=== PATIENT | female | born 2000 ===

== ENCOUNTER 2024-10-26 12:46 | Outpatient (CLI) | payer OTHER, SELFPAY ==
--- OUTSIDE RECORDS SUMMARY | 2024-10-26 12:50 | XMS_ITS | Referral Summary ---
Author Organization [address] Address [address] [place] [id number] Care Team Providers Care New Car Driver Name Role Phone Sharon Moralez Primary Care Provider [phone] Allergies No known active allergies Medications cholecalciferol (VITAMIN D-3) 62590 unit tablet Take 1 tablet (50,000 Units total) by mouth every 7 days Active ascorbic acid (vitamin C) 1,000 mg tablet Take 1 tablet (1,000 mg total) by mouth daily Active vitamin b complex tablet Take 1 tablet by mouth daily Active magnesium gluconate 200 mg tabletIndicatio ns:hypomagnesem ia 1 tablet (200 mg total) Active selenium sulfide 2.5 % lotionIndicatio ns:Seborrheic dermatitis Apply to affected areas and leave on for 10 minutes then wash off. Do this daily for 1 week, then twice a week for maintenance. 120 mL 11 08/16/2023 Active Active Problems Problem Noted Date Diagnosed Date BMI 28.0-28.9,adult 01/21/2020 Routine adult health maintenance 01/12/2020 Overview (01/12/2020): Health Maintenance: -PCV13 vaccine: N/A -PPSV23 vaccine: N/A -Tdap vaccine: -Influenza vaccine: -Shingles vaccine: N/A -Colonoscopy: N/A -Last WWE: N/A -Last Mammogram: N/A -Last DEXA: N/A -Last eye exam: -Last MHA: N/A Immunizations Immunization Administration Dates Next Due BCG 01/22/2002 DTaP 5 Pertussis 08/02/2006, 4,06/29/2002,05/01,02/27/2002 HPV9 08/16/2023 Hep A, Unspecified 10/25/2003,03/19/2003 Hep B, Adolescent or Pediatric 02/15/2005 Hep B, Unspecified 03/09/2002,02/03/2002, 002 HiB 03/19/2003, 3,05/01/2002,02/27 IPV 08/02/2006, 3,05/01/2002,02/27 Influenza, Quadrivalent, Spl it, Preservative Free, Intramuscular 01/23/2022 Influenza, Unspecified 02/06/2023(Deferr ed: Patient Refused),01/06/2021(Deferred: Patient Refused) [place] Encephalitis, Unspecified 03/21/2010,,07/07/2003 MMR 08/02/2006,01/20/2003 Meningococcal ACWY, Unspecified 02/21/2017 Meningococcal Conjugate (Menveo) 01/21/2020 PPD TEST 06/17/2012,05/02/2010 Tdap 02/21/2017 Varicella 09/29/2015,01/20/2003 Social History Tobacco Use Types Packs/Day Years Used Date Smoking Tobacco: Never Tobacco Cessation:Counseling Given: Not Answered Alcohol Use Standard Drinks/Week Comments Never 0 (1 standard drink = 0.6 oz pur e alcohol) AUDIT-C Answer Date Recorded Q1: How often do you have a drink containing alc ohol? 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 Sexual Orientation Choose not to disclose 2021 1:25 PM MANGLE CATCHER Occupation Industry Job Start Date Job End Date Student Not on file Not on file Not on file Last Filed Vital Signs Vital Sign Reading Time Taken Comments Blood Pressure 102/78 08/16/2023 9:54 AM CDT Pulse 97 08/16/2023 9:54 AM CDT Temperature 36.4 C (97.6 F) 08/16/2023 9:54 AM CDT Respiratory Rate 18 08/16/2023 9:54 AM CDT Oxygen Saturation 98% 08/16/2023 9:54 AM CDT Inhaled Oxygen Concentration - - Weight 70.8 kg (156 lb) 08/16/2023 9:54 AM CDT Height 162.6 cm (5' 4) 08/16/2023 9:54 AM CDT Body Mass Index 26.78 08/16/2023 9:54 AM CDT Plan of Treatment Not on file Procedures Procedure Name Priority Date/Time Associated Diagnosis Comments HEPATITIS PANEL, ACUTE Routine 01/17/2023 9:52 AM CDT Polyarthralgia from Last 3 Months or Most Recently Relevant to Health Maintenance Results * Hepatitis panel, acute Blood (01/17/2023 9:52 AM CDT) Hep A IgM Nonreactive Nonreactive Hep B core IgM Nonreactive Nonreactive [facility] Hep C Ab Nonreactive Nonreactive [facility] Comment:Antibodies to HCV no t detected. Does NOT exclude the possibility of recent exposure to HCV. Current interpretive data was last revised on 21 HepBsAg Nonreactive Nonreactive [facility] Blood 01/17/2023 9:52 AM CDT 01/17/2023 10:16 AM CDT us Naomie Bar NP LAB MICROBIOLOGY - [facility] ORDERABLES Final Result [facility] Department [place] [address] from Last 3 Months or Most Recently Relevant to Health Maintenance Insurance [employer] [facility] Care Teams New Car Driver Relationship Specialty Start Date End Date Sharon Moralez PA [facility] [address] [place] [address] PCP - General Family Medicine 01/08/20
--- OUTSIDE RECORDS SUMMARY | 2024-10-26 12:50 | XMS_ITS | Clinical Summary ---
Author Organization [address] Address [address] [place] [id number] Care Team Providers Care Cognos Report Developer Name Role Phone Sharon Moralez Primary Care Provider [phone] Allergies No known active allergies Medications cholecalciferol (VITAMIN D-3) 93062 unit tablet Take 1 tablet (50,000 Units [...] Unspecified 02/06/2023(Deferr ed: Patient Refused),01/06/2021(Deferred: Patient Refused) [place] Encephalitis, Unspecified 03/21/2010,,07/07/2003 MMR 08/02/2006,01/20/2003 Meningococcal ACWY, Unspecified 02/21/2017 Meningococcal Conjugate (Menveo) 01/21/2020 PPD TEST 06/17/2012,05/02/2010 Tdap 02/21/2017 Varicella 09/29/2015,01/20/2003 Family History Medical History Relation Name Comments Blood Clot Father PE No Known Problems Maternal Grandfather No Known Problems Maternal Grandmother brain tumor Mother noncancerous, r emoved No Known Problems Paternal Grandfather No Known Problems Paternal Grandmother Relation Name Status Comments Father Alive Maternal Grandfather Alive Maternal Grandmother Alive Mother Alive Paternal Grandfather Paternal Grandmother Social History Tobacco Use Types Packs/Day Years [...] Identity Choose not to disclose 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 Sexual Orientation Choose not to disclose 2021 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 Occupation Industry Job Start Date Job End Date Student Not on file Not on file Not on file Obstetrics History Last Filed Vital Signs Vital Sign Reading [...] 08/16/2023 9:54 AM CDT Plan of Treatment Health Maintenance Due Date Last Done Comments Cervical Cancer Screening 2001 Meningococcal B Vaccine (1 of 2 - Standard) 2017 Regular Well Visit/Exam 18-64 01/20/2021 01/21/2020 HPV Vaccines (2 - 3-dose series) 09/13/2023 08/16/2023 Depression Screening 11/20/2023 11/19/2022, 04/27/2021, 01/21/2020 Covid-19 Vaccine ( - season) 2023 03/05/2021, 01/31/2021 Influenza Vaccine (#1) 2024 01/23/2022 DTaP/Tdap/Td Vaccine (7 - Td or Tdap) 02/21/2027 02/21/2017, 08/02/2006, 07/07/2003, Additional history exists Hepatitis B Screening Completed 02/15/2005 , 03/09/2002, 02/03/2002, Additional history exists Varicella Vaccines Completed 09/29/2015, 01/20/2003 Hepatitis C Screening Completed 01/17/2023 Pneumococcal vaccine <65 Aged Out No longer eligible based on patient's age to complete this topic Procedures Procedure Name Priority Date/Time Associated Diagnosis Comments HEPATITIS PANEL, ACUTE Routine 01/17/2023 9:52 AM CDT Polyarthralgia from Last 3 Months or Most Recently Relevant to Health Maintenance Results * Hepatitis panel, acute Blood (01/17/2023 9:52 AM CDT) Hep A IgM Nonreactive Nonreactive Hep B core IgM Nonreactive Nonreactive [facility] Hep C Ab Nonreactive Nonreactive [facility] Comment:Antibodies to HCV no t detected. Does NOT exclude the possibility of recent exposure to HCV. Current interpretive data was last revised on 21 HepBsAg Nonreactive Nonreactive [facility] Blood 01/17/2023 9:52 AM CDT 01/17/2023 10:16 AM CDT Naomie Bar BAGGING MACHINE OPERATOR LAB MICROBIOLOGY - [facility] ORDERABLES Final Result [facility] [place] [address] from Last 3 Months or Most Recently Relevant to Health Maintenance Insurance [facility] Care Teams Cognos Report Developer Relationship Specialty Start Date End Date Sharon Moralez PA [address] [place], [place] [address] PCP - General Family Medicine 01/08/20
--- OUTSIDE RECORDS SUMMARY | 2024-10-26 12:51 | XMS_ITS | Patient Health Record ---
Author Organization [facility] Address [address] [place] [address] Care Team Providers Care Gang Supervisor Pipe Lines Name Role Phone Mike Moore Unavailable [phone] Isaac Barron Unavailable [phone] Allergies No Known Allergies Results Component Value Reference Range Notes VITAMIN B12/FOLATE, SERUM PA ELIUD (7031) Reviewed date:09/21/2024 11:12:13 AM Interpretation: Performing Lab:[facility]-[id number] Kristel [id number] Demarco Mooney MD Notes/Report: VITAMIN B12 711 548-3176 pg/mL FOLATE, SERUM 9.8 Reference Range Low: <3.4 Borderline: 3.4-5.4 Normal: >5.4 CBC (H/H, RBC, INDICES, WBC, PLT) (1759) Reviewed date:09/21/2024 11:12:13 AM Interpretation: Performing Lab:[id number] [id number] Demarco Mooney Notes/Report: WHITE BLOOD CELL COUNT 8.8 3.8-10.8 Thousand/uL RED BLOOD CELL COUNT 4.89 3.80-5.10 Million/uL HEMOGLOBIN 15.4 11.7-15.5 g/dL HEMATOCRIT 46.2 35.0-45.0 % MCV 94.5 80.0-100.0 fL MCH 31.5 27.0-33.0 pg MCHC 33.3 32.0-36.0 g/dL For adults, a slight decrease in the calculated MCHC value (in the range of 30 to 32 g/dL) is most likely not clinically significant; however, it should be interpreted with caution in correlation with other red cell parameters and the patient's clinical condition. RDW 12.3 11.0-15.0 % PLATELET COUNT 332 140-400 Thousand/uL MPV 11.0 7.5-12.5 fL COMPREHENSIVE METABOLIC PANE L (17506) Reviewed date:09/21/2024 11:12:13 AM Interpretation: Performing Lab:[facility] [id number] [address] Evens Castellano [id number] [facility]ic[facility] Notes/Report: GLUCOSE 91 65-99 mg/dL Fasting reference interval UREA NITROGEN (BUN) 12 7-25 mg/dL CREATININE 0.56 0.50-0.96 mg/dL EGFR 132 > OR = 60 mL/min/1.73m2 BUN/CREATININE RATIO SEE NOTE: 6-22 (calc) Not Reported: BUN and Creatinine are within reference range. SODIUM 139 135-146 mmol/L POTASSIUM 4.4 3.5-5.3 mmol/L CHLORIDE 106 98-110 mmol/L CARBON DIOXIDE 24 20-32 mmol/L CALCIUM 9.8 8.6-10.2 mg/dL PROTEIN, TOTAL 7.2 6.1-8.1 g/dL ALBUMIN 4.6 3.6-5.1 g/dL GLOBULIN 2.6 1.9-3.7 g/dL (calc) ALBUMIN/GLOBULIN RATIO 1.8 1.0-2.5 (calc) BILIRUBIN, TOTAL 0.4 0.2-1.2 mg/dL ALKALINE PHOSPHATASE 67 31-125 U/L AST 14 10-30 U/L ALT 20 6-29 U/L TSH+FREE T4 (39522) Reviewed date:09/21/2024 11:12:12 AM Interpretation: Performing Lab:[facility] [id number] [address] Castell[address] [id number] [facility] Notes/Report: TSH 1.02 Reference Range > or = 20 Years 0.40-4.50 Ranges First trimester 0.26-2.66 Second trimester 0.55-2.73 Third trimester 0.43-2.91 T4, FREE 1.1 0.8-1.8 ng/dL IRON, TIBC AND FERRITIN PANE L (5616) Reviewed date:09/21/2024 11:12:12 AM Interpretation: Performing Lab:[facility] JIMENEZ-[id number] Dane Rizo, [id number] Demarco Mooney MD Notes/Report: IRON, TOTAL 85 40-190 mcg/dL IRON BINDING CAPACITY 338 250-450 mc g/dL (calc) % SATURATION 25 16-45 % (calc) FERRITIN 22 16-154 ng/mL UDT Reviewed date:09/08/2024 01:49:28 PM Interpretation: Performing Lab: Notes/Report: THC NEG 0 - 50 ng/ml Cocaine NEG 0 - 300 ng/ml Amphetamine NEG 0 - 1000 ng/ml Buprenorphine (BUP) NEG 0 - 10 ng/ml Secobarbital (Bar) NEG 0 - 300 ng/ml Oxazepam (BZO) NEG 0 - 300 ng/ml 3-crtcczhxii-4,0-jxagjdvh-8, 3-diphenyl pyrrolidine (EDDP) NEG 0 - 300 ng/ml Methamphetamine (MET) NEG 0 - 1000 ng/ml Methylenedioxymethamphetamine (MDMA) NEG 0 - 500 ng/ml Morphine (MOP 300/GMH9403) NEG 0 - 300 ng/ml Methadone (MTD) NEG 0 - 300 ng/ml Phencyclidine (PCP) NEG 0 - 25 ng/ml Nortriptyline (TCA) NEG 0 - 1000 ng/ml Oxycodone NEG 0 - 300 ng/ml x NEG 0 - 300 ng/ml Reason For Referral No Information Medications Medication SIG (Take, Route, Frequency, Duration) Notes Start Date End Date Status Lisdexamfetamine Dimesylate 50 MG 1 capsule in the morning Orally Once a day; Duration: 14 days dose increase 10/22/2024 Active Sertraline HCl 100 MG 1 tablet Orally Once a day; Duration: 30 days Active Sertraline HCl 25 MG 1 tablet daily x 7 days then 2 tablets daily x 7 days Orally Once a day; Duration: 14 days 09/08/2024 Not-Taking Social History Tobacco Use: Social History Observation Description Date Details (start date - stop date) Never Smoker NA - NA Sex Assigned At : Social History Observation Description Sex Assigned At Female Tobacco Control (Standard) Question Answer Notes Tobacco use: Nonsmoker AUDIT-C (Standard) Question Answer Notes Points 1 Did you have a drink contain ing alcohol in the past year? Yes How often did you have six o r more drinks on one occasion in the past year? Never (0 point) How many drinks did you have on a typical day when you were drinking in the past year? 1 or 2 drinks (0 point) How often did you have a dri nk containing alcohol in the past year? 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) Attention and concentration deficit (R41.840) Active confirmed Problem ADHD (attention deficit hyperactivity disorder) (F90.9) Active confirmed Vital Signs Heart Rate 71 /min 10/07/2024 Height-cm 162.56 cm 10/07/2024 Blood pressure diastolic 79 mm Hg 10/07/2024 Weight-kg 90.36 kg 10/07/2024 Height 64 in 10/07/2024 Blood pressure systolic 117 mm Hg 10/07/2024 Weight 199.2 lbs 10/07/2024 BMI 34.19 kg/m2 10/07/2024 Encounters Encounter Location Date Provider Diagnosis [employer] [facility] [address] [facility] [address] [place] [address] 09/08/2024 Mike Moore Encounter for screen ing for depression Z13.31 ; Encounter for screening for cardiovascular disorders Z13.6 ; Generalized anxiety disorder F41.1 ; Attention and concentration deficit R41.840 ; Major depressive disorder, recurrent, moderate F33.1 and Other fatigue R53.83 [employer] [facility] [address] [facility] [address] [place] [address] 09/16/2024 Isaac Barron Attention deficit hyperactivity disorder (ADHD), unspecified ADHD type F90.9 [employer] [place] [id number] [facility] [address] [place] [address] 10/07/2024 Mike Moore Encounter for screen ing for depression Z13.31 ; Encounter for screening for cardiovascular disorders Z13.6 ; Generalized anxiety disorder F41.1 ; Attention and concentration deficit R41.840 ; Major depressive disorder, recurrent, moderate F33.1 ; Other fatigue R53.83 and ADHD (attention deficit hyperactivity disorder) F90.9 [employer] [address] [place] [address] 10/21/2024 Mike Moore ADHD (attention defi cit hyperactivity disorder) F90.9 Assessments Encounter Date Diagnosis (ICD Code) Assessment Notes Treatment Notes Treatment Clinical Notes Section Notes 09/08/2024 Encounter for screening for cardiovascular disorders (ICD-10 - Z13.6) 09/08/2024 Encounter for screening for depression (ICD-10 - Z13.31) 09/16/2024 Attention deficit hyperactivity disorder (ADHD), unspecified ADHD type (ICD-10 - F90.9) Interpretation of ADHD and Cognitive Function Profile Subject Profile: Female, age 23 Assessment Date: September 16, 2024 Assessment Tool: [employer] ADHD Clinical Report ASRS Result: Indicative of ADHD Cognitive Markers Outside Typical Range: 1 1. ADHD Questionnaire (ASRS) Results Part A Score: 5 This is above the clinical threshold of 3 and reflects a pattern of core ADHD symptoms, especially in attention regulation and task follow-through. Part B Score: 11 While not used diagnostically, this high score further supports the presence of broad ADHD-related symptoms, such as restlessness, distractibility, and impulsive behavior. Conclusion: The self-reported symptom pattern is consistent with an ADHD diagnosis, primarily involving attentional regulation and behavioral control difficulties. 2. Cognitive Assessment Summary Planning (Spatial Planning) Score: 41 Percentile: 95 Interpretation: Planning ability is significantly above average, indicating excellent executive function in organizing and structuring tasks when focused and engaged. Working Memory (Token Search) Score: 6.57 Percentile: 74 Interpretation: Strong working memory. The subject is capable of holding and manipulating information effectively. Attention (Feature Match) Errors: 3 Reaction Time: 2422 ms Percentiles: Accuracy 76, Reaction Time 17 Interpretation: Attention is accurate but slower than average. This suggests careful but delayed cognitive processing, possibly to avoid errors. Response Inhibition (Double Trouble) Errors: 7 Interference Reaction Time Ratio: 1.63 Percentile: 98 Interpretation: There is a significant delay in responding under cognitive interference, despite accurate responses. This suggests the subject struggles with efficient filtering of distracting stimuli. Sustained Attention (SART) Commission Errors: 6 Reaction Time Variability: 110 ms Percentile: 22 for accuracy, 29 for variability Interpretation: The subject exhibits mild inconsistency in sustained attention. These scores are not severely impaired but suggest reduced cognitive endurance in repetitive or boring tasks. Summary of Cognitive and Behavioral Profile The subject reports strong symptoms of ADHD, especially inattentive and executive dysfunction. Cognitive strengths are clearly evident in planning and working memory, which suggests the ability to compensate under structure. The most prominent challenge is processing speed under distraction and maintaining consistent attention over time. These subtle cognitive inefficiencies support the ADHD diagnosis, especially in daily situations that require sustained focus or multitasking without structure. Non-Pharmacologic Treatment Recommendations Cognitive Behavioral Therapy for ADHD Focus on managing distractibility and perfectionistic slowing. Train strategies for optimizing work pace without sacrificing accuracy. Mindfulness-Based Training Use daily 10-minute mindfulness practices to improve real-time awareness and reduce attention fragmentation. Mindfulness can also assist in reducing cognitive rigidity under stress or interference. Executive Function Coaching Apply coaching to reinforce time monitoring, task shifting, and sustaining effort over long tasks. Use of digital tools and visual timelines for tracking progress is recommended. Attention Regulation Exercises Incorporate structured digital attention training, targeting inhibition and reaction time consistency. Begin with short, adaptive exercises, gradually increasing complexity. Routine and Environmental Structuring Reduce reliance on working memory by using checklists and visual cues. Design study or work environments that minimize unexpected distractions. Regular Aerobic Activity Engage in moderate-intensity cardio four or more days per week to improve dopamine modulation and attention regulation. Sleep and Nutrition Stabilization Maintain a fixed sleep schedule to support cognitive stamina. Emphasize morning meals with balanced macronutrients, especially protein, to support neurotransmitter regulation. Final Remarks This individual exhibits a well-defined ADHD profile with exceptional planning capacity and working memory. The primary cognitive vulnerabilities are in inhibitory control under distraction and in sustained attention performance. Non-pharmacologic strategies should focus on enhancing consistency, managing pacing, and reducing attentional fatigue. Ongoing behavioral support is appropriate, and neuropsychological testing is not necessary. Clinical follow-up is advised for continued symptom monitoring and functional adjustments. 10/07/2024 Encounter for screening for cardiovascular disorders (ICD-10 - Z13.6) 10/07/2024 Encounter for screening for depression (ICD-10 - Z13.31) 10/21/2024 ADHD (attention deficit hyperactivity disorder) (ICD-10 - F90.9) 09/08/2024 Generalized anxiety disorder (ICD-10 - F41.1) 10/07/2024 Generalized anxiety disorder (ICD-10 - F41.1) 10/07/2024 Attention and concentration deficit (ICD-10 - R41.840) 09/08/2024 Attention and concentration deficit (ICD-10 - R41.840) 10/07/2024 Major depressive disorder, recurrent, moderate (ICD-10 - F33.1) 09/08/2024 Major depressive disorder, recurrent, moderate (ICD-10 - F33.1) 09/08/2024 Other fatigue (ICD-10 - R53.83) 10/07/2024 Other fatigue (ICD-10 - R53.83) 10/07/2024 ADHD (attention deficit hyperactivity disorder) (ICD-10 - F90.9) Non-Pharmacologic Treatment RecommendationsCogniti ve Behavioral Therapy for ADHDFocus on managing distractibility and perfectionistic slowing.Train strategies for optimizing work pace without sacrificing accuracy.Mindfulness-B ased TrainingUse daily 10-minute mindfulness practices to improve real-time awareness and reduce attention fragmentation.Mindfuln ess can also assist in reducing cognitive rigidity under stress or interference.Executive Function CoachingApply coaching to reinforce time monitoring, task shifting, and sustaining effort over long tasks.Use of digital tools and visual timelines for tracking progress is recommended.Attention Regulation ExercisesIncorporate structured digital attention training, targeting inhibition and reaction time consistency.Begin with short, adaptive exercises, gradually increasing complexity.Routine and Environmental StructuringReduce reliance on working memory by using checklists and visual cues.Design study or work environments that minimize unexpected distractions.Regular Aerobic ActivityEngage in moderate-intensity cardio four or more days per week to improve dopamine modulation and attention regulation.Sleep and Nutrition StabilizationMaintain a fixed sleep schedule to support cognitive stamina.Emphasize morning meals with balanced macronutrients, especially protein, to support neurotransmitter regulation. 09/08/2024 Other Learning About Depression Screening material was printed America Bernstein, a young adult female with a history of ADHD and anxiety, presents with concerns of anxiety, ADHD symptoms, possible OCD, and dissociative symptoms. Anxiety Disorder Assessment: Patient reports longstanding anxiety symptoms, including panic attacks, hypervigilance, and avoidance behaviors. She experiences internal anxiety and catastrophic thinking, impacting daily activities. No current suicidal ideation, but history of passive suicidal thoughts. Patient's anxiety appears to significantly impact her functioning and quality of life. Plan: - Start sertraline 25 mg PO daily for 1 week, then increase to 50 mg PO daily for 1 week, then to 100 mg PO daily - Follow-up appointment in 1 month Attention-Deficit/H yperactivity Disorder (ADHD) Assessment: Patient has a history of ADHD diagnosis in 1st grade, previously treated with methylphenidate (100mg total daily dose). Current symptoms include difficulty focusing, especially during lectures, easily distracted, tendency to lose things, interrupting others, and procrastination. Patient reports discontinuation of previous treatment due to financial difficulties after moving to [place]. Plan: - Schedule ADHD testing (computerized tests) - Consider treatment options based on test results Obsessive-Compulsiv e Traits Assessment: Patient reports behaviors suggestive of obsessive-compulsiv e traits, including ritualistic hair burning and specific folding patterns at work. However, these symptoms do not appear to meet full criteria for Obsessive-Compulsiv e Disorder (OCD) based on the current evaluation. Dissociative Symptoms Assessment: Patient reports experiencing dissociative symptoms, particularly related to traumatic childhood memories. She describes remembering events in snapshots and having difficulty recalling details of recent traumatic events. These symptoms do not appear to meet criteria for Dissociative Identity Disorder (DID) based on the current evaluation. Irregular Menstruation Assessment: Patient reports irregular menstrual cycles occurring approximately every 6 weeks, associated with significant pain. Joint Issues Assessment: Patient reports intermittent joint pain in knees and ankles, as well as temporomandibular joint (TMJ) issues. Previous autoimmune workup, including blood tests, was reportedly negative. Laboratory Studies Plan: - Order complete blood count (CBC) - Order comprehensive metabolic panel (CMP) - Order thyroid function tests - Order iron studies - Order vitamin B12 and folate levels the note is transcribed using speech recognition software. It is a reflection of a visit with the patient. It might have some inaccuracy, including medication names and transcribing errors, though efforts have been made to correct them. 10/07/2024 Chaya Bernstein, previously diagnosed with ADHD in 1st grade, presents with ongoing ADHD symptoms, anxiety, and OCD-like behaviors, seeking medication management and follow-up care. Attention-Deficit/Hype ractivity Disorder (ADHD) Assessment: Patient has a history of ADHD diagnosis from 1st grade and recent neuropsychological testing on September 16 confirming ADHD, particularly in attention and executive function domains. Testing revealed cognitive strengths in working memory, suggesting compensatory skills under structure. Most prominent challenges include processing speed under distraction and maintaining consistent attention over time. These cognitive inefficiencies support the ADHD diagnosis, especially in daily situations requiring sustained focus or multitasking without structure. Patient previously took methylphenidate (100 mg/day) until middle school but has not been on ADHD medication recently. Plan: - Start Vyvanse 30 mg PO daily in the morning - Informed patient of potential side effects: decreased appetite, sleep disturbances if taken later in the day - Prescribe 2-week supply to assess response - Follow up in 1 month - Patient to provide update in 2 weeks Anxiety with OCD-like symptoms Assessment: Patient reports multiple OCD-like symptoms including compulsive behaviors with fans, hair-pulling, crystals, walking patterns, intrusive thoughts about , nail-picking, contamination fears, checking behaviors, number rituals, and difficulty discarding items. Currently on sertraline 100 mg daily for anxiety management. Patient is engaged in therapy, focusing on general anxiety, catastrophizing, and emotional regulation, but not specifically addressing OCD symptoms. Plan: - Continue sertraline 100 mg PO daily - Monitor anxiety and OCD-type symptoms - Consider future increase in sertraline dose or alternative medication if symptoms persist - Encourage continued engagement in therapy Insomnia Assessment: Patient reports difficulty falling asleep but maintains sleep once initiated. Plan: - Advised to take Vyvanse in the morning to avoid sleep disturbances Substance use Assessment: Patient reports occasional use of cannabis via vaporizer, primarily at night for relaxation and sleep aid. Use occurs every few days. Plan: - Informed patient of clinic policy: stimulant medications not prescribed with cannabis use - Offered non-stimulant medication as an alternative if cannabis use continues the note is transcribed using speech recognition software. It is a reflection of a visit with the patient. It might have some inaccuracy, including medication names and transcribing errors, though efforts have been made to correct them. Plan Of Treatment Future Test Test Name Order Date IRON, TIBC AND FERRITIN PANEL (5616) 06/2024 TSH+FREE T4 (70364) 09/08/2024 COMPREHENSIVE METABOLIC PANEL (76711) CBC (H/H, RBC, INDICES, WBC, PLT) (1759) 09/08/2024 VITAMIN B12/FOLATE, SERUM PANEL (7065) 0 09/08/2024 ADHD Testing 09/08/2024 Next Appt Details Provider Name:Mike milner, 11/11/2024 09:45:00 AM, [address] [facility] [facility] [address], [place], [address], Insurance Providers Payer Name Payer Address Payer Phone Subscriber Number Group Number Insured Name Patient Relationship to Insured Coverage Start Date Coverage End Date [facility] [address] [place] [phone] [id number] America Bernstein Self - patient is the insured Medical (General) History Medical History History ICD Code Past Psychiatric History: Anxiety Disord er abdominal aortic aneurysm: No atrial fibrillation: No chronic fatigue syndrome: No essential tremor: No hyperlipidemia: No hypertension: No Parkinson's disease: No restless leg syndrome: No stroke: No subdural hematoma: No type 1 diabetes mellitus: No type 2 diabetes mellitus: No vitamin B12 deficiency: No vitamin D deficiency: No
== END 2024-10-26 12:47 | disposition home or self-care (01) ==
LOC: ANHAUDIO 12:48
PROVIDERS: PCP Family Medicine; Visit Provider Family Medicine
DX: H90.41 Sensorineural hearing loss, unilateral, right ear, with unrestricted hearing on the contralateral side (principal)
CPT/HCPCS: 92557; 92567

== ENCOUNTER 2024-11-27 13:27 | Emergency (ER) | payer OTHER, SELFPAY ==
[2024-11-27 13:38] VITALS: BP 119/72; PULSE 79; RESP 20; TEMP 36.6; O2SAT 97
[2024-11-27 13:55] LABS: EDCOVIDSCREEN Negative (Negative); EDINFLUASCREEN Negative (Negative); EDINFLUBSCREEN Negative (Negative)
--- NOTE | 2024-11-27 14:12 | ED.GENADULT ---
HPI - General Adult General Chief complaint: Headache Stated complaint: headache/vomiting Time Seen by Provider: 11/27/24 14:14 Source: patient, RN notes reviewed and old records reviewed Mode of arrival: ambulatory Limitations: no limitations History of Present Illness HPI narrative: 23-year-old female presents to the [facility] with complaints having diarrhea for 2 days, currently none. Did take Pepto. No other treatment duct prior to arrival. Denies pain. States this morning she woke up with a headache, pressure, vomited 1 time. Ears feel ?stuffy?. No treatment except for Tylenol prior to arrival. Denies fevers, chest pain, abdominal pain. Denies any urinary symptoms. Related Data Home Medications ?Medication ?Instructions ?Recorded ?Confirmed ?Last Taken ?Type lisdexamfetamine 50 mg capsule 50 mg PO DAILY 10/22/24 10/28/24 Unknown History sertraline 100 mg tablet 100 mg PO DAILY 10/22/24 10/28/24 Unknown History Allergies Allergy/AdvReac Type Severity Reaction Status Date / Time No Known Allergies Allergy Unverified 11/27/24 13:50 Review of Systems Review of Systems: All systems reviewed & are unremarkable except as noted in HPI and below Constitutional: Constitutional: Reports as per HPI ENT: Reports as per HPI Cardiovascular: Cardiovascular: Reports no additional cardiovascular complaints, Denies chest pain and Denies dyspnea Respiratory: Respiratory: Reports no additional respiratory complaints, Denies chest congestion, Denies cough and Denies dyspnea Gastrointestinal: Gastrointestinal: Reports as per HPI Musculoskeletal: Musculoskeletal: Reports no additional musculoskeletal complaints Integumentary/Breasts: Skin/Breast: Reports system reviewed and no additional complaints, except as docu PMFSH Past Medical History Medical History Migraines Anxiety Depression ADHD Family History Family History Mother Cancer Cervical Father Pulmonary embolism Hx of blood clots Depression Anxiety Grandparent Cancer Grandmother - Paternal (Stomach) Grandparent Alcoholism Grandfather - Maternal Social History Social History Smoking status: Unknown if ever smoked Alcohol intake: current Substance use: current Substance use type: marijuana Do You Feel Safe in your Home?: Yes Lack of Transportation: No Lack of Food: Sometimes True Current Housing: I Have Housing Concerned About Future Housing: No Difficulty Paying Gas/Electric Bills: No Difficulty Paying for Meds: YES Currently Unemployed: No Education: High School Diploma/GED Difficulty w/ Childcare or Family Care: No Comments At the time of my signature, I reviewed and agree with the nursing past medical, surgical, social, and family history. There is no relevant family history pertinent to the patient complaint. Exam Const: General: cooperative, healthy appearing, comfortable, no acute distress, well developed, alert and well nourished Nutritional Appearance: well nourished Orientation/consciousness: patient oriented x3 Limitations: no limitations HENMT: Head: normal to inspection Ears: hearing grossly normal bilaterally, external ears normal, TM's normal bilaterally, EAC's normal, mastoids normal and no periauricular adenopathy Mouth: Yes Normal oral and palatal mucosa present, Yes lip normal, Yes tongue normal and Yes moist mucous membranes Throat: posterior oropharynx normal, uvula midline and no uvular edema Eyes: General: appearance normal, both eyes and all related structures Alignment and Position: alignment normal Neck: Neck: normal visual inspection, full ROM, no lymphadenopathy and no meningeal signs Chest: Chest palpation & inspection: normal inspection of the chest Resp: Effort & Inspection: normal respiratory effort and able to speak in complete sentences Auscultation: clear to auscultation bilaterally, no crackles, no rales, no rhonchi and no wheezes Cardio: Rate: regular rate GI: GI Palp: No abdominal tenderness Auscultation: normal bowel sounds : General: Yes no CVA tenderness Skin: General skin exam: normal color and no rashes or lesions noted Neuro: General: patient oriented x3, gait normal, moves all extremities and no meningeal signs Cognition (Neuro): normal cognition Speech: normal speech Gait exam (Neuro): Normal gait present Extrem: General: normal to inspection, full ROM, capillary refill normal and normal gait Psych: Appearance: grossly normal and well kempt Mental Status: mental status grossly normal Speech and movement: Normal speech and movement present and Clear speech present Affect: normal affect Attitude: cooperative Course Course Level of Care: Express Care Visit Vital Signs Vital signs: Vital Signs Temperature 97.9 F 11/27/24 13:38 Pulse Rate 79 11/27/24 13:38 Respiratory Rate 20 11/27/24 13:38 Blood Pressure 119/72 11/27/24 13:38 Pulse Oximetry 97 11/27/24 13:38 Oxygen Delivery Room Air 11/27/24 13:38 Temperature 97.9 F 11/27/24 13:38 Pulse Rate 79 11/27/24 13:38 Respiratory Rate 20 11/27/24 13:38 Blood Pressure 119/72 11/27/24 13:38 Pulse Oximetry 97 11/27/24 13:38 Oxygen Delivery Room Air 11/27/24 13:38 Reviewed Medical Decision Making MDM Narrative Medical decision making narrative: Patient sitting comfortably in exam room. Nontoxic, vitals stable. Patient in no acute distress Patient presents with concerns for diarrhea, headache, ear pressure. No acute findings noted on exam. Patient's flu and COVID were negative in clinic. Discussed [id number] treatment plan which patient verbalized understanding. Discharge instructions reviewed with patient, as well as provided in writing per nursing staff. The instructions also include specific and strict return/GO TO THE ER as well as f/u information. All questions have been answered, and the patient deny any further questions with discharge and discharge plan. Some parts of this dictation were generated by voice recognition software and may contain typographical and/or grammatical inaccuracies. Differential Diagnosis Differential Diagnosis: URI, flu, COVID, sinusitis, dehydration Medical Records Medical records reviewed: Yes I reviewed the external patient's medical records. Vital Signs Vital Signs: Vital Signs Temperature 97.9 F 11/27/24 13:38 Pulse Rate 79 11/27/24 13:38 Respiratory Rate 20 11/27/24 13:38 Blood Pressure 119/72 11/27/24 13:38 Pulse Oximetry 97 11/27/24 13:38 Oxygen Delivery Room Air 11/27/24 13:38 Temperature 97.9 F 11/27/24 13:38 Pulse Rate 79 11/27/24 13:38 Respiratory Rate 20 11/27/24 13:38 Blood Pressure 119/72 11/27/24 13:38 Pulse Oximetry 97 11/27/24 13:38 Oxygen Delivery Room Air 11/27/24 13:38 Reviewed Lab Data Lab results reviewed: Yes I reviewed the patient's lab results. Labs: Lab Results 11/27/24 Range/Units 13:34 POC Influenza A Ag Negative (Negative) POC Influenza B Ag Negative (Negative) POC SARS CoV-2 Ag Negative (Negative) Reviewed Critical Care Time Critical Care Time Critical Care Time: No Discharge Plan Discharge Clinical Impression: Gastroenteritis Earache symptoms Qualifiers: Laterality: bilateral Qualified Code(s): H92.03 - Otalgia, bilateral Patient Disposition: Home Condition: Stable Instructions: Gastroenteritis (DC), Acute Nausea and Vomiting (DC), Acute Diarrhea (ED) Additional Instructions: Keep your diet very simple. Nothing fried, greasy, spicy or highly processed. Increased her fluid intake to include water, Gatorade, Pedialyte, ice pops in Jell-O Take Zofran for the nausea Take Tylenol as needed for pain per package instructions For the ear aches, use Flonase twice a day for 5 days and then daily. Taking an allergy medication such as Claritin or Zyrtec can help with fluid behind your ear drums. Today both your flu and COVID rapid test were negative Follow-up with primary care provider For new or worsening symptoms go directly to the emergency room Patient Language: Faroese Prescriptions: New ondansetron HCl 4 mg tablet 4 mg PO Q8H PRN (Reason: nausea and vomiting) Qty: 7 0RF No Action sertraline 100 mg tablet 100 mg PO DAILY lisdexamfetamine 50 mg capsule 50 mg PO DAILY Follow-up/Referrals: Antwan Valdez DO [Primary Care Provider, Family Practice] - 1 Week Clinical Impression: Earache symptoms; Gastroenteritis Stand Alone Forms: Work/School Release IP Time of Disposition: 14:28
== END 2024-11-27 14:36 | disposition home or self-care (01) ==
PROVIDERS: Emergency Provider Nurse Practitioner; PCP Family Medicine
DX: K52.9 Noninfective gastroenteritis and colitis, unspecified (principal); H92.03 Otalgia, bilateral; Z20.822 Contact with and (suspected) exposure to COVID-19; F12.90 Cannabis use, unspecified, uncomplicated; F90.9 Attention-deficit hyperactivity disorder, unspecified type; F41.9 Anxiety disorder, unspecified; F32.A Depression, unspecified
CPT/HCPCS: 87426; 87804; 99213; G0463

== ENCOUNTER 2025-02-04 12:37 | Emergency (ER) | payer OTHER, SELFPAY ==
[2025-02-04 12:42] VITALS: BP 132/79; PULSE 96; RESP 16; TEMP 36.9; O2SAT 100
--- NOTE | 2025-02-04 12:45 | ED.EYEPROB ---
HPI - Eye Problem General Chief complaint: Eye Problems Stated complaint: Left Eye Irritation Time Seen by Provider: 02/04/25 12:40 Source: patient Mode of arrival: ambulatory Limitations: no limitations History of Present Illness HPI Narrative: Patient is a 24-year-old female who presents with itchy left eye for 1 week. Now having more pain. Denies any drainage or vision changes. Related Data Home Medications ?Medication ?Instructions ?Recorded ?Confirmed ?Last Taken ?Type sertraline 100 mg tablet 100 mg PO DAILY 10/22/24 10/28/24 Unknown History Allergies Allergy/AdvReac Type Severity Reaction Status Date / Time No Known Allergies Allergy Verified 02/04/25 12:49 Review of Systems Review of Systems: All systems reviewed & are unremarkable except as noted in HPI and below Constitutional: Constitutional: Denies body ache(s), Denies fever(s), Denies headache(s), Denies malaise and Denies weakness Eyes: Eyes: Denies blurry vision, Denies eye discharge, Reports irritation, Reports itchy eyes, Denies loss of vision and Reports eye pain ENT: Denies otalgia, Denies headache(s), Denies nasal discharge, Denies sinus pain and Denies sore throat Cardiovascular: Cardiovascular: Denies chest pain, Denies irregular heart rhythm and Denies dyspnea Respiratory: Respiratory: Denies dyspnea Gastrointestinal: Gastrointestinal: Denies abdominal pain, Denies diarrhea, Denies nausea and Denies vomiting Musculoskeletal: Musculoskeletal: Denies back pain, Denies myalgias and Denies arthralgias Integumentary/Breasts: Skin/Breast: Denies pruritus and Denies rash Neurologic: Denies headache(s), Denies loss of vision and Denies weakness Psychiatric: Psychiatric: Reports no additional psychiatric complaints Allergic/Immunologic: Allergic/Immunologic: Reports itchy eyes PMFSH Past Medical History Medical History Migraines Anxiety Depression ADHD Family History Family History Mother Cancer Cervical Father Pulmonary embolism Hx of blood clots Depression Anxiety Grandparent Cancer Grandmother - Paternal (Stomach) Grandparent Alcoholism Grandfather - Maternal Social History Social History Smoking status: Unknown if ever smoked Alcohol intake: current Substance use: current Substance use type: marijuana Do You Feel Safe in your Home?: Yes Lack of Transportation: No Lack of Food: Sometimes True Current Housing: I Have Housing Concerned About Future Housing: No Difficulty Paying Gas/Electric Bills: No Difficulty Paying for Meds: YES Currently Unemployed: No Education: High School Diploma/GED Difficulty w/ Childcare or Family Care: No Comments At time of signature, agree with nursing past medical, surgical, social and family history. There is no relevant family history pertinent to the presenting complaint. Exam Const: General: cooperative, healthy appearing, comfortable, no acute distress and well nourished Nutritional Appearance: well nourished Orientation/consciousness: patient oriented x3 Limitations: no limitations HENMT: Head: normal to inspection, normocephalic and atraumatic Ears: external ears normal Face/Nose/Sinus: Normal external nose present, normal facial exam and face symmetric Face and sinus: normal facial exam and face symmetric Mouth: Yes lip normal Eyes: General: appearance normal, both eyes and all related structures Visual Alba: normal visual alba by confrontation Alignment and Position: alignment normal and position normal Periorbital: periorbital findings normal Eyelids: eyelids normal Conjunctivae: conjunctival abnormality left conjunctival injection diffuse Sclera: scleral abnormality left scleral injection medial Pupils: Equal, round and reactive pupils present EOM: EOMs intact bilaterally Direct Ophthalmoscopy: no photophobia Other: No hyphema, no foreign body under the lids. Neck: Neck: normal visual inspection, full ROM, no lymphadenopathy and no meningeal signs Chest: Chest palpation & inspection: normal inspection of the chest Resp: Effort & Inspection: normal respiratory effort and able to speak in complete sentences Auscultation: clear to auscultation bilaterally Cardio: Rate: regular rate Rhythm: regular rhythm Heart sounds: S1 normal heart sound present and S2 normal heart sound present GI: Inspection: normal to inspection Skin: General skin exam: normal color and no rashes or lesions noted Neuro: General: patient oriented x3, moves all extremities and no meningeal signs Cranial nerves: Yes Equal, round and reactive pupils present Speech: normal speech Gait exam (Neuro): Normal gait present Extrem: General: normal to inspection, full ROM and no edema Psych: Appearance: grossly normal and well kempt Mental Status: mental status grossly normal Speech and movement: Normal speech and movement present Affect: normal affect Attitude: cooperative Thought process: Normal thought process present Course Course Emergency Course: Patient is aware of diagnosis, understands and agrees to treatment plan. Anticipatory guidance given. Patient agrees to follow-up as directed and is aware of reasons to seek care at the emergency department. Portions of this record may have been created with voice recognition software Level of Care: Express Care Visit Vital Signs Vital signs: Reviewed MDM - Eye Problem MDM Narrative Medical decision making narrative: Exam findings show no acute concerns or changes; patient is non-toxic appearing and is in no distress.? Patient is appropriate for outpatient treatment and follow-up Discharge instructions reviewed with patient and family, as well as provided in writing per nursing staff. The instructions also include specific and strict return/GO TO THE ER as well as f/u information. All questions have been answered, and the patient deny any further questions with discharge and discharge plan. Consideration of the following conditions may be warranted for the presenting problem, they are not final diagnoses: Bacterial conjunctivitis, allergic conjunctivitis, viral conjunctivitis, foreign body, blepharitis, chalazion, hordeolum, corneal abrasion. Differential Diagnosis Differential diagnosis: Likely corneal abrasion, conjunctivitis, periorbital cellulitis and corneal ulcer Medical Records Attestation: I reviewed the patient's medical records. Discharge Plan Discharge Clinical Impression: Bacterial conjunctivitis Patient Disposition: Home Condition: Stable Instructions: Conjunctivitis (ED) Additional Instructions: Eye drops as prescribed. -Do this for 3 to 4 days until all redness and discharge has disappeared. -Cold compresses to the affected eye for comfort -May need warm compresses to remove debris in the morning -When cleaning the eyes used a washcloth/cotton ball in one direction then change washcloths/cotton ball before using it on another eye. -Do not share medicine--do not touch the eye with the medicine -Alternate or take Tylenol or ibuprofen as directed in the bottle for pain -Avoid screen time--television, computer, tablet or phone. -Practice good handwashing and hygiene to prevent spread of infection Follow-up with PCP or pattern chain builder if condition is not improving in 2-3days. Go to the emergency room if you have pain behind your eye, pressure behind her eye, difficulty seeing, or other severe symptoms Patient Language: Romanian Prescriptions: New ofloxacin 0.3 % drops See Rx Instructions .ROUTE .COMPLEX Qty: 5 0RF Rx Instructions: put 1-2 drps into left eye every 2-4 h x 2 days, then 1-2 drps 4 times/day days 3-7 No Action sertraline 100 mg tablet 100 mg PO DAILY Follow-up/Referrals: Antwan Valdez DO [Primary Care Provider, [facility]] - 3 Days Time of Disposition: 12:59
== END 2025-02-04 13:06 | disposition home or self-care (01) ==
PROVIDERS: Emergency Provider Nurse Practitioner Family; PCP Family Medicine
DX: H10.89 Other conjunctivitis (principal)
CPT/HCPCS: 99213; G0463